=== PATIENT | male | born 1960 | race Caucasian/White ===

== ENCOUNTER 2024-08-26 07:51 | Outpatient (CLI) | payer BC, MEDICAID ==
[~2024-08-26] VITALS: Ht 165.1 cm; Wt 75.4 kg
[2024-08-26] MEDS ORDERED: TRICOR 48MG48 MG PO (08:39)
[2024-08-26] MEDS ORDERED: BIKTARVY 50-201 EACH PO (08:39)
[2024-08-26] MEDS ORDERED: NEURONTIN300 MG/CAP PO (08:40)
[2024-08-26] MEDS ORDERED: SYNTHROID0.1 MG/TAB PO (08:40)
[2024-08-26] MEDS ORDERED: MOBIC 7.5MG7.5 MG PO (08:41)
[2024-08-26] MEDS ORDERED: PROTONIX 40MG T40 MG PO (08:42)
[2024-08-26] MEDS ORDERED: OMEGA-31 SGL PO (08:42)
[2024-08-26] MEDS ORDERED: VIAGRA50 M1 PO (08:43)
[2024-08-26] MEDS ORDERED: FLOMAX 0.40.4 MG/CAP PO (08:43)
[2024-08-26] MEDS ORDERED: ADVIL200 MG PO (08:48)
[2024-08-26 08:49] VITALS: BP 156/104; PULSE 67; TEMP 97.8
[2024-08-26 09:17] VITALS: BP 139/99; PULSE 58
--- NOTE | 2024-08-26 09:17 | NUR ---
Report received from Hung Donovan.Dressing observed clean,dry,intact.Per Hung Donovan she still needs to do education with pt.
--- NOTE | 2024-08-26 09:50 | NUR ---
Pt left after education completed withHung Donovan.This nurse was not aware pt left until gone.Per Hung Donovan she completed education with pt prior to his leaving.Reported to Dr Shanks.This nurse will call pt to review dc orders.
[2024-08-26] MEDS ORDERED: CEPHALEXIN500 M1 PO (09:51)
--- NOTE | 2024-08-26 10:11 | NUR ---
Call made to pt to reviewed Dr Shanks discharge instructions.I spoke with pt.Pt verbalizes understanding.
== END 2024-08-26 10:12 ==
LOC: COL.CAR 07:51
DX: I47.10 Supraventricular tachycardia, unspecified (principal); R53.83 Other fatigue; B20 Human immunodeficiency virus [HIV] disease; Z79.899 Other long term (current) drug therapy